=== PATIENT | female | born 1985 | race African-American/Black ===

== ENCOUNTER → 2017-07-03 | Outpatient (CLI) | payer BC, MEDICAID ==
[2017-07-03 14:06] LABS: ABSOLUTE MONOCYTES (AUTO) 0.4 10^3/uL (0.1-1.4); ABSOLUTE NEUT (AUTO) 7.2 10^3/uL (1.7-8.2); BASOPHILS % (AUTO) 0.5 % (0-2); EOSINOPHILS % (AUTO) 0.3 % (0-6); HEMATOCRIT 37.4 % (36.0-47.0); HEMOGLOBIN 12.4 g/dL (12.0-15.5); HGB HCT DIFFERENCE -0.2; LYMPHOCYTES % (AUTO) 20.5 % (13-45); MEAN CORPUSCULAR HGB CONC 33.2 g/dL (32.0-36.0); MEAN CORPUSCULAR VOLUME 85 fl (80-97); MONOCYTES % (AUTO) 4.4 % (3-13); RED BLOOD COUNT 4.43 10^6/uL (3.72-5.28); RED CELL DISTRIBUTION WIDTH 13.3 % (11.5-14.0); SEGMENTED NEUTROPHILS % (AUTO) 74.3 % (42-78); WHITE BLOOD COUNT 9.7 10^3/uL (4.0-10.5)
[2017-07-03 14:29] LABS: ALANINE AMINOTRANSFERASE 18 U/L (9-52); ALBUMIN 3.5 g/dL (3.5-5.0); ALKALINE PHOSPHATASE 70 U/L (38-126); ANION GAP 6 (5-19); ASPARTATE AMINO TRANSFERASE 13 U/L (14-36); BILIRUBIN,DIRECT 0.3 mg/dL (0.0-0.4); BILIRUBIN,TOTAL 0.4 mg/dL (0.2-1.3); BLOOD UREA NITROGEN 7 mg/dL (7-20); CALCIUM 9.6 mg/dL (8.4-10.2); CARBON DIOXIDE 26 mmol/L (22-30); CHLORIDE 105 mmol/L (98-107); GLUCOSE 77 mg/dL (75-110); LDH 272 U/L (313-618); POTASSIUM 4.2 mmol/L (3.6-5.0); SODIUM 137.4 mmol/L (137-145); TOTAL PROTEIN 6.5 g/dL (6.3-8.2); URIC ACID 4.1 mg/dL (2.5-6.2)
[2017-07-05 13:21] LABS: URINE PROTEIN 8.8 mg/dL (<12)
== END ==
LOC: OCH 12:56
DX: O09.891 Supervision of other high risk pregnancies, first trimester (principal)
CPT/HCPCS: 36415; 80053; 83615; 84156; 84550; 85025

== ENCOUNTER 2017-10-16 16:48 | Outpatient (CLI) | payer BC, MEDICAID ==
[2017-10-16 18:41] LABS: APPEARANCE,URINE SLIGHTLY-CLOUDY; BILIRUBIN,URINE NEGATIVE (NEGATIVE); GLUCOSE, URINE NEGATIVE (NEGATIVE); KETONES,URINE NEGATIVE (NEGATIVE); LEUKOCYTE ESTERASE,URINE NEGATIVE (NEGATIVE); NITRITE,URINE NEGATIVE (NEGATIVE); PROTEIN,URINE NEGATIVE (NEGATIVE); URINE SPECIFIC GRAVITY 1.004; UROBILINOGEN,URINE NEGATIVE mg/dL (<2.0)
[2017-10-16 18:59] LABS: URINE BARBITURATES SCREEN NEGATIVE; URINE METHADONE SCREEN NEGATIVE; URINE OPIATES LOW NEGATIVE; URINE PHENCYCLIDINE SCREEN NEGATIVE
== END 2017-10-16 17:59 | disposition home or self-care (01) ==
LOC: LC 16:48
PROVIDERS: ATTEND Student in an Organized Health Care Education/Training Program
PROC: 4A1HXCZ Monitoring of Products of Conception, Cardiac Rate, External Approach (ICD-10-PCS; principal; 2017-10-16)
DX: O24.415 Gestational diabetes mellitus in pregnancy, controlled by oral hypoglycemic drugs (principal); O10.913 Unspecified pre-existing hypertension complicating pregnancy, third trimester; Z3A.33 33 weeks gestation of pregnancy
CPT/HCPCS: 80307; 81001; 82962

== ENCOUNTER 2017-12-25 15:46 | Outpatient (CLI) | payer BC, MEDICAID | END 2017-12-25 16:27 | disposition home or self-care (01) | LOC: LC 15:46 | PROVIDERS: ATTEND Obstetrics & Gynecology | PROC: 4A1HXCZ Monitoring of Products of Conception, Cardiac Rate, External Approach (ICD-10-PCS; principal; 2017-12-25) | DX: Z34.93 Encounter for supervision of normal pregnancy, unspecified, third trimester (principal); Z3A.34 34 weeks gestation of pregnancy | CPT/HCPCS: 59025 ==

== ENCOUNTER 2018-01-28 05:09 | Inpatient (IN) | payer BC, MEDICAID ==
[2018-01-25 12:53] LABS: ABSOLUTE LYMPHOCYTES (AUTO) 1.5 10^3/uL (0.5-4.7); ABSOLUTE MONOCYTES (AUTO) 0.6 10^3/uL (0.1-1.4); ABSOLUTE NEUT (AUTO) 5.7 10^3/uL (1.7-8.2); BASOPHILS % (AUTO) 0.2 % (0-2); EOSINOPHILS % (AUTO) 0.3 % (0-6); HEMATOCRIT 38.2 % (36.0-47.0); LYMPHOCYTES % (AUTO) 18.7 % (13-45); MEAN CORPUSCULAR HEMOGLOBIN 29.4 pg (27.0-33.4); MEAN CORPUSCULAR HGB CONC 34.1 g/dL (32.0-36.0); MEAN CORPUSCULAR VOLUME 86 fl (80-97); MONOCYTES % (AUTO) 8.2 % (3-13); PLATELET COUNT 202 10^3/uL (150-450); RED BLOOD COUNT 4.43 10^6/uL (3.72-5.28); RED CELL DISTRIBUTION WIDTH 14.4 % (11.5-14.0); SEGMENTED NEUTROPHILS % (AUTO) 72.6 % (42-78); TOTAL CELLS COUNTED % (AUTO) 100 %; WHITE BLOOD COUNT 7.8 10^3/uL (4.0-10.5)
[2018-01-25 13:01] LABS: AMORPHOUS SEDIMENT,URINE 1+ /HPF; APPEARANCE,URINE SLIGHTLY-CLOUDY; BILIRUBIN,URINE NEGATIVE (NEGATIVE); COLOR,URINE YELLOW; GLUCOSE, URINE NEGATIVE (NEGATIVE); KETONES,URINE NEGATIVE (NEGATIVE); LEUKOCYTE ESTERASE,URINE NEGATIVE (NEGATIVE); NITRITE,URINE NEGATIVE (NEGATIVE); PROTEIN,URINE NEGATIVE (NEGATIVE); URINE SPECIFIC GRAVITY 1.006; UROBILINOGEN,URINE NEGATIVE mg/dL (<2.0)
[2018-01-25 13:18] LABS: URINE AMPHETAMINES SCREEN NEGATIVE; URINE BARBITURATES SCREEN NEGATIVE; URINE BENZODIAZEPINES SCREEN NEGATIVE; URINE COCAINE SCREEN NEGATIVE; URINE MARIJUANA (THC) SCREEN NEGATIVE; URINE METHADONE SCREEN NEGATIVE; URINE PHENCYCLIDINE SCREEN NEGATIVE
[2018-01-28] MEDS ORDERED: CEFAZOLIN 1 GM/D5W RTU 1 GM/50 ML RTUPB IV ONE (06:00)
[2018-01-28] MEDS ORDERED: AZITHROMYCIN 500 MG in DEXTROSE 5%-WATER 250 ML IV ONE (06:00)
[2018-01-28] MEDS ORDERED: RINGERS SOLUTION,LACTATED 1,000 ML IV PRN (06:10)
[2018-01-28] MEDS ORDERED: AZITHROMYCIN INJ 500 MG VIAL IV ONE (06:14)
[2018-01-28] MEDS ORDERED: PROPOFOL INJ 200 MG/20 ML VIAL IV ONE (07:41)
[2018-01-28] MEDS ORDERED: FENTANYL CITRATE INJ/PF 100 MCG/2 ML AMPUL ONE ×2 (07:41→09:41)
[2018-01-28] MEDS ORDERED: OXYTOCIN 10 UNIT/ML VIAL ONE (07:41)
[2018-01-28] MEDS ORDERED: MIDAZOLAM 2 MG/2 ML INJ ONE (07:41)
[2018-01-28] MEDS ORDERED: EPHEDRINE SULFATE INJ 50 MG/1 ML AMPULE ONE (07:41)
[2018-01-28] MEDS ORDERED: TETRACAINE HCL/PF 20MG/2ML AMPULE (SPINAL) ONE (07:42)
[2018-01-28] MEDS ORDERED: PROMETHAZINE HCL INJ 25 MG/1 ML VIAL IV PRN ×2 (08:33→11:27)
[2018-01-28] MEDS ORDERED: FENTANYL CITRATE INJ/PF 100 MCG/2 ML AMPUL IV PRN ×3 (08:33)
[2018-01-28] MEDS ORDERED: MEPERIDINE HCL/PF INJ 25 MG/1 ML DISP.SYRIN IV PRN (08:33)
[2018-01-28] MEDS ORDERED: DIPHENHYDRAMINE HCL 50 MG/ML VIAL IV PRN (08:33)
[2018-01-28] MEDS ORDERED: ONDANSETRON HCL INJ/PF 4 MG/2 ML SDV IV PRN (08:33)
[2018-01-28] MEDS ORDERED: PHENYLEPHRINE HCL INJ/PF 10 MG/1 ML SDV ONE (10:53)
[2018-01-28] MEDS ORDERED: SIMETHICONE 80 MG TAB.CHEW PO PRN (11:27)
[2018-01-28] MEDS ORDERED: OXYTOCIN/NORMAL SALINE 20 UNIT/1,000 ML RTUINJ IV PRN (11:27)
[2018-01-28] MEDS ORDERED: MEASLES,MUMPS&RUBELLA VACC/PF 0.5 ML VIAL SUBCUT PRN (11:27)
[2018-01-28] MEDS ORDERED: DIPH/PERTUSS(ACELL)/TETANUS VAC/PF 0.5 ML SYR (>=10YO) IM PRN (11:27)
[2018-01-28] MEDS ORDERED: MORPHINE SULFATE 10 MG/ML INJ IM PRN (11:27)
[2018-01-28] MEDS ORDERED: OXYCODONE-ACETAMINOPHEN 5-325 MG TABLET PO PRN (11:27)
[2018-01-28] MEDS ORDERED: ACETAMINOPHEN 325 MG TABLET PO PRN (11:27)
[2018-01-28] MEDS ORDERED: ACETAMINOPHEN 100 ML IV PRN (11:27)
[2018-01-28] MEDS: IBUPROFEN 800 MG TABLET PO SCH ×2 (11:52→17:51)
[2018-01-28] MEDS: KETOROLAC TROMETHAMINE INJ/PF 30 MG/1 ML SDV IV SCH ×2 (13:15→21:37)
[2018-01-28] MEDS: DOCUSATE SODIUM 100 MG CAPSULE PO SCH (17:50)
[2018-01-28] MEDS: OXYCODONE-ACETAMINOPHEN 5-325 MG TABLET PO PRN (17:53)
[2018-01-28] MEDS ORDERED: (PENDING PHARMACY ID) (Labetalol Hcl [Labetalol Hcl] 100 MG) PO SCH (18:00)
[2018-01-28] MEDS: LABETALOL HCL 200 MG TABLET PO SCH (21:37)
[2018-01-29] MEDS: IBUPROFEN 800 MG TABLET PO SCH ×4 (01:02→17:00)
[2018-01-29] MEDS: OXYCODONE-ACETAMINOPHEN 5-325 MG TABLET PO PRN ×3 (02:10→22:31)
[2018-01-29] MEDS ORDERED: LACTATED RINGERS 1000 ML IV PRN (05:00)
[2018-01-29] MEDS ORDERED: LIDOCAINE 0.5% INJ-PF (5 MG/ML) 50 ML SDV SUBCUT PRN (05:00)
[2018-01-29] MEDS: KETOROLAC TROMETHAMINE INJ/PF 30 MG/1 ML SDV IV SCH (05:39)
[2018-01-29 07:02] LABS: HEMOGLOBIN 10.6 g/dL (12.0-15.5); MEAN CORPUSCULAR HEMOGLOBIN 29.6 pg (27.0-33.4); MEAN CORPUSCULAR HGB CONC 34.2 g/dL (32.0-36.0); MEAN CORPUSCULAR VOLUME 87 fl (80-97); PLATELET COUNT 156 10^3/uL (150-450); RED BLOOD COUNT 3.57 10^6/uL (3.72-5.28); RED CELL DISTRIBUTION WIDTH 14.6 % (11.5-14.0); WHITE BLOOD COUNT 13.3 10^3/uL (4.0-10.5)
[2018-01-29] MEDS: DOCUSATE SODIUM 100 MG CAPSULE PO SCH ×2 (09:38→17:00)
[2018-01-29] MEDS: PRENATAL VITAMIN W DHA CAPSULE PO SCH (09:38)
[2018-01-29] MEDS: LABETALOL HCL 200 MG TABLET PO SCH ×2 (09:38→22:32)
--- NOTE | 2018-01-29 13:37 | PDOC PROGRESS REPORT ---
Subjective-OB Progress Note for:: 01/29/18 Subjective: 32yo G2 now P2 s/p repeat ppd1. Ambulating, voiding and without difficulty. Pain well controlled with medication, passing gas; has not had a bowel movement yet. No concerns. Physical Exam (OB) Vital Signs: Temp Pulse Resp BP Pulse Ox 98.2 F 106 H 16 141/87 H 97 01/29/18 07:39 01/29/18 07:39 01/29/18 07:39 01/29/18 07:39 01/29/18 07:39 Intake & Output 01/28/18 01/29/18 01/30/18 06:59 06:59 06:59 Intake Total 2555 Output Total 3150 Balance -595 Weight 105.233 kg - General General Appearance: Appears well In distress: None - PIH/Pre-Eclampsia DTR's: 1 + Clonus: Negative Headache: Absent Epigastric Pain: No Visual Changes: No - Dressing Removed: No Incision: Well Approximated Closure Type: Sutures - Lochia Lochia Amount: Scant < 10 ml Lochia Color: Rubra/Red - Abdomen Description: Tender, Soft, Flat Hernia Present: No Fundal Description: Firm, Midline Fundal Height: u/u - u/2 - Respiratory Respiratory Status: No respiratory distress - Extremities Upper extremity: Normal inspection Lower extremities: Normal inspection Ankle: Normal - Neurological Cognition: Normal Orientation: AAOx4 - Psychological Associated symptoms: Normal affect, Normal mood Objective-Diagnostic Laboratory: 01/29/18 06:49 01/29/18 06:49 WBC 13.3 H RBC 3.57 L Hgb 10.6 L Hct 31.0 L MCV 87 MCH 29.6 MCHC 34.2 RDW 14.6 H Plt Count 156 Assessment and Plan(PN) - Assessment and Plan (1) S/P repeat low transverse Is this a current diagnosis for this admission?: Yes Plan: routine pp care (2) Gestational diabetes mellitus (GDM) affecting fifth Is this a current diagnosis for this admission?: Yes Plan: will need f/u at pp visit (3) Chronic hypertension affecting Is this a current diagnosis for this admission?: Yes Plan: continue observing for s/s of pre-e. Severe range Bps yesterday, mild range today. Denies s/s. (4) Acute blood loss anemia Is this a current diagnosis for this admission?: Yes Plan: increase dietary iron and feso4 supplementation bid - Time Spent with Patient Time with patient: Less than 15 minutes - Disposition Anticipated Discharge: Home Within: within 24 hours
[2018-01-30] MEDS: IBUPROFEN 800 MG TABLET PO SCH ×3 (00:01→11:31)
[2018-01-30 08:16] VITALS: BP 136/74
--- NOTE | 2018-01-30 08:34 | PDOC DISCHARGE SUMMARY ---
Final Diagnosis Discharge Date: 01/30/18 Discharge Data - Discharge Medication Prescriptions: Oxycodone HCl/Acetaminophen [Percocet 5-325 mg Tablet] 2 tab PO Q4HP PRN #30 tablet PRN Reason: Docusate Sodium [Colace 100 mg Capsule] 100 mg PO BID #60 capsule Ferrous Sulfate 325 mg PO BID #60 tablet Ibuprofen [Motrin 800 mg Tablet] 800 mg PO Q6 #60 tablet Home Medications: Labetalol HCl 100 mg PO BID 10/16/17 Pnv No.121/Iron/Folic Acid [ Multivitamin Tablet] 1 tab PO DAILY Aspirin [Aspirin 81 mg Chewable Tablet] 1 tab PO DAILY 12/25/17 Docusate Sodium [Colace 100 mg Capsule] 100 mg PO BID #60 capsule 01/30/18 Ferrous Sulfate 325 mg PO BID #60 tablet 01/30/18 Ibuprofen [Motrin 800 mg Tablet] 800 mg PO Q6 #60 tablet 01/30/18 Oxycodone HCl/Acetaminophen [Percocet 5-325 mg Tablet] 2 tab PO Q4HP PRN #30 tablet 01/30/18 Gestational Age: 39 Reason(s) for Admission: Ceasarean Section-Repeat, PIH, Gestional Diabetes Procedures: NST Intrapartum Procedure(s): : Low Cervical, Transverse - [place] Data Baby 1 Female at 1 minute: 8 at 5 minutes: 9 Weight: 3895 kg Home with Mother: Yes Complications: No - Diagnosis Test Laboratory: Temp Pulse Resp BP Pulse Ox 98.3 F 108 H 17 136/74 H 97 01/30/18 08:08 01/30/18 08:08 01/30/18 08:08 01/30/18 08:08 01/30/18 08:08 01/25/18 01/25/18 01/29/18 12:30 12:35 06:49 RBC 4.43 3.57 L Hgb 13.0 10.6 L Hct 38.2 31.0 L Urine Opiates Screen NEGATIVE - Discharge information/Instructions Discharge Activity: Activity As Tolerated, No Driving, No Lifting Over 10 Pounds , Pelvic Rest, No tub bath Discharge Diet: Regular Disposition: HOME, SELF-CARE Follow up with: [facility] in: 1, Weeks
[2018-01-30] MEDS: DOCUSATE SODIUM 100 MG CAPSULE PO SCH (10:17)
[2018-01-30] MEDS: LABETALOL HCL 200 MG TABLET PO SCH (10:17)
[2018-01-30] MEDS: PRENATAL VITAMIN W DHA CAPSULE PO SCH (10:17)
--- NOTE | 2018-03-25 14:35 | OPERATIVE REPORT E ---
Operative Report NAME: DELBERT ROUSE : 1985 AGE: 32Y DATE OF SURGERY: 01/28/2018 ROOM: 227 PREOPERATIVE DIAGNOSES: 1. IUP AT 39 WEEKS. 2. PREVIOUS SECTION. POSTOPERATIVE DIAGNOSES: 1. IUP AT 39 WEEKS. 2. PREVIOUS SECTION. OPERATION: Repeat low transverse hysterotomy section. SURGEON: KAM SAM M.D. ANESTHESIA: Dr. Park with a spinal. FINDINGS: Female infant in cephalic presentation with Apgars of 8 and 9. COMPLICATIONS: None. PATHOLOGY: None. ESTIMATED BLOOD LOSS: 800 mL. PROCEDURE: Patient was taken to the operating room, prepared and draped in normal sterile fashion in a supine position with a leftward tilt. A transverse skin incision was made with a scalpel and carried through to the underlying layer of fascia with the same scalpel. The fascia was incised in the midline and extended laterally with Skyler. The fascia was then dissected from the rectus muscle sharply with Skyler and the rectus muscle was divided. The peritoneal cavity was entered bluntly with surgeon finger fracture, with good visualization of the uterus and the bladder. The bladder blade was inserted. The hysterotomy was nicked with a scalpel and extended laterally with surgeon finger fracture. The was then delivered atraumatically. The nose and mouth were suctioned with a suction bulb, and the cord was clamped and cut, and the was handed off to waiting anthropology professor. Cord blood was collected. The placenta was removed manually. The uterus was exteriorized and cleared of clots and debris. The hysterotomy was closed with 0 Monocryl in a running locked fashion. A second layer of the same suture was used to imbricate, to ensure hemostasis. The uterus was then returned to the abdomen, and the peritoneal cavity was cleared of clots and debris. The rectus muscle and peritoneum were reapproximated with a mattress stitch of 2-0 chromic. The fascia was closed with 0 Vicryl. The subcutaneous layer was closed with plain catgut, and the skin was closed with 4-0 Vicryl. Patient tolerated the procedure well. Sponge, lap and needle counts were correct x2, and the patient was taken to recovery in stable condition. DICTATING PHYSICIAN: KAM SAM M.D. [id number] PHY#: [id number] ID: [id number] JOB#: [id number] ACCT: [id number] cc:KAM SAM M.D. > EUNICE
== END 2018-01-30 13:00 | disposition home or self-care (01) | DRG 766 ==
LOC: 2S 05:09
PROVIDERS: ADMIT Obstetrics & Gynecology; ATTEND Obstetrics & Gynecology
PROC: 10D00Z1 Extraction of Products of Conception, Low, Open Approach (ICD-10-PCS; principal; 2018-01-28 07:45)
DX: O34.211 Maternal care for low transverse scar from previous cesarean delivery (principal); N85.8 Other specified noninflammatory disorders of uterus; O24.425 Gestational diabetes mellitus in childbirth, controlled by oral hypoglycemic drugs; O16.4 Unspecified maternal hypertension, complicating childbirth; O99.214 Obesity complicating childbirth; E66.9 Obesity, unspecified; E28.2 Polycystic ovarian syndrome; Z37.0 Single live birth; Z3A.39 39 weeks gestation of pregnancy; Z68.38 Body mass index [BMI] 38.0-38.9, adult
CPT/HCPCS: 1961; 36415; 59025; 80307; 81001; 82962; 85025; 85027; 86850; 86900; 86901; 94799; C1765; J0456; J0690; J1885; J2250; J2270; J2370; J2590; J2704; J3010; J3490; J7120

== ENCOUNTER 2020-04-28 07:54 | Emergency (ER) | payer MEDICAID, OTHER ==
[2020-04-28 08:08] VITALS: BP 146/90
--- NOTE | 2020-04-28 08:26 | ER Document Report ---
ED General - General Chief Complaint: Sore Throat Stated Complaint: FLU LIKE SYMPTOMS Time Seen by Provider: 04/28/20 08:07 Primary Care Provider: KAM SAM MD [ACTIVE STAFF] - Follow up as needed Notes: 34-year-old female presents with cough body aches fever and sore throat for about 3 days. Fever is actually gone down in the last day. She has a history of strep throat. She had a telemedicine appointment with her primary today who told to come to the ER for a strep test. She has no shortness of breath change in taste headache vomiting or other symptoms. TRAVEL OUTSIDE OF THE [place] IN LAST 30 DAYS: No - Related Data Allergies/Adverse Reactions: No Known Allergies Allergy (Verified 01/25/18 11:51) Past Medical History - General Information source: Patient - Social History Smoking Status: Unknown if Ever Smoked Family History: None Patient has homicidal ideation: No - Past Medical History Cardiac Medical History: Reports: Hx Hypertension Psychiatric Medical History: Reports: Hx Anxiety Past Surgical History: Reports: Hx Section - Immunizations Immunizations up to date: Yes Hx Diphtheria, Pertussis, Tetanus Vaccination: Yes - less than 5 years Review of Systems - Review of Systems Notes: REVIEW OF SYSTEMS GEN: Fever fatigue ENT: Sore throat EYES: Denies blurry vision, eye pain, discharge CV: Denies chest pain, palpitations, edema RESP: Denies cough, shortness of breath, wheezing GI: Denies abdominal pain, nausea, vomiting, diarrhea MSK: Denies joint pain/swelling, edema, SKIN: Denies rash, skin lesions LYMPH: Denies swollen glands/lymph nodes NEURO: Denies headache, focal weakness or numbness, dizziness PSYCH: Denies depression, suicidal or homicidal ideation PHYSICAL EXAMINATION General: No acute distress, well-nourished Head: Atraumatic, normocephalic ENT: Pharyngeal erythema with? Exudate. No hot potato voice or trismus Nt Eyes: Conjunctiva normal, pupils equal, lids normal Neck: No JVD, supple, no guarding CVS: Normal rate, regular rhythm, no murmurs Resp: No resp distress, equal and normal breath sounds bilaterally GI: Nondistended, soft, no tenderness to palpation, no rebound or guarding Ext: No deformities, no edema, normal range of motion in upper and lower ext Back: No CVA or midline TTP Skin: No rash, warm Lymphatic: No lymphadeopathy noted Neuro: Awake, alert. Face symmetric. GCS 15. Physical Exam - Vital signs Vitals: Temp Pulse Resp BP Pulse Ox 98.1 F 89 18 146/90 H 98 04/28/20 08:07 04/28/20 08:07 04/28/20 08:07 04/28/20 08:07 04/28/20 08:07 Course - Re-evaluation Re-evalutation: 04/28/20 08:26 Viral syndrome versus strep versus COVID Strep sent COVID sent Vitals normal no sepsis no therapy indicated 04/28/20 15:08 COVID pending strep negative discharge home supportive care. Insert discharge - Vital Signs Vital signs: Temp Pulse Resp BP Pulse Ox 98.1 F 89 18 146/90 H 98 04/28/20 08:08 04/28/20 08:07 04/28/20 08:07 04/28/20 08:07 04/28/20 08:07 Discharge - Discharge Clinical Impression: Encounter for laboratory testing for COVID-19 virus Pharyngitis Qualifiers: Pharyngitis/tonsillitis etiology: unspecified etiology Qualified Code(s): J02.9 - Acute pharyngitis, unspecified Condition: Good Disposition: HOME, SELF-CARE Additional Instructions: You have been evaluated for complaints or symptoms which could reflect infection with coronavirus/Covid-19 disease. In the emergency department we are incapable of testing every patient and given the prevalence of the disease in this community you should assume you are infected. Please stay at home with minimal interaction to others, wash your hands, practice social distancing while at home, and remained at home without any travel outside of the home for: 1. At least 3 days (72 hours) have passed since recovery defined as resolution of fever without the use of fever-reducing medications and improvement in respiratory symptoms (e.g., cough, shortness of breath) AND 2. At least 7 days have passed since symptoms first appeared. Forms: Return to Work Referrals: KAM SAM MD [ACTIVE STAFF] - Follow up as needed
== END 2020-04-28 09:15 | disposition home or self-care (01) ==
LOC: ER 07:54
DX: J02.9 Acute pharyngitis, unspecified (principal); R05 Cough; R50.9 Fever, unspecified; R53.83 Other fatigue; I10 Essential (primary) hypertension; Z20.828 Contact with and (suspected) exposure to other viral communicable diseases
CPT/HCPCS: 99283; 87070; 87880; 87635; 87077; C9803